=== PATIENT | male | born 1955 | race Caucasian/White ===

== ENCOUNTER 2018-07-25 10:51 | Emergency (ER) | payer OTHER ==
[2018-07-25 11:09] VITALS: BP 138/83; PULSE 76; RESP 18; TEMP 98.1; O2SAT 100
--- NOTE | 2018-07-25 11:21 | C.PDOC ---
History Of Present Illness 62 year old male complaining of dental pain to his left lower and upper molars for 20 days but worse for the past 2 days. Reports he is not able to eat because of the pain. He denies any fever, n/v/d, or any other symptoms. Time Seen by Provider: 07/25/18 11:00 Chief Complaint (Nursing): Dental Pain History Per: Patient History/Exam Limitations: no limitations Onset/Duration Of Symptoms: Days Current Symptoms Are (Timing): Still Present Past Medical History Reviewed: Historical Data, Nursing Documentation, Vital Signs Vital Signs: Last Vital Signs Temp 98.1 F 07/25/18 11:04 Pulse 76 07/25/18 11:04 Resp 18 07/25/18 11:04 BP 138/83 07/25/18 11:04 Pulse Ox 100 07/25/18 11:04 - Medical History PMH: HTN Surgical History: Coronary Stent (X3) Family History: States: No Known Family Hx - Social History Hx Alcohol Use: No Hx Substance Use: No Review Of Systems Except As Marked, All Systems Reviewed And Found Negative. Constitutional: Negative for: Fever ENT: Positive for: Other (dental pain ) Gastrointestinal: Negative for: Nausea, Vomiting, Diarrhea Physical Exam - Physical Exam Appears: Non-toxic Skin: Warm, Dry Head: Normacephalic Eye(s): bilateral: Normal Inspection Ear(s): Bilateral: Normal Nose: Normal Oral Mucosa: Moist Teeth: Other (Filling noted to first, second, and third lower molars. Filling on third molar is cracked ) Gingiva: No Swelling, No Abscess ED Course And Treatment O2 Sat by Pulse Oximetry: 100 (RA) Pulse Ox Interpretation: Normal Medical Decision Making Medical Decision Making: Orders: - Amoxicillin 500mg PO - Motrin 600mg PO On reassessment, patient is feeling better. Patient instructed to follow up with primary medical doctor or clinic in 2-5 days for further evaluation. Take medications as prescribed. Return to the emergency department at any time if symptoms persist or worsen. Disposition - Disposition [facility] Disposition: HOME/ ROUTINE Disposition Time: 11:42 Condition: STABLE Additional Instructions: Follow up with Dentist within 1-2 days without fail. 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 - Scribe Statement The provider has reviewed the documentation as recorded by the Scribe Mary Beth Bell All medical record entries made by the Deborahibjosé were at my direction and personally dictated by me. I have reviewed the chart and agree that the record accurately reflects my personal performance of the history, physical exam, medical decision making, and the department course for this patient. I have also personally directed, reviewed, and agree with the discharge instructions and disposition.
== END 2018-07-25 11:51 | disposition home or self-care (01) ==
LOC: C.ER 10:51
DX: K02.9 Dental caries, unspecified (principal); I10 Essential (primary) hypertension

== ENCOUNTER 2019-01-18 09:35 | Observation (INO) | payer MEDICAID, OTHER ==
[2019-01-18 11:19] LABS: BASO # 0.1 K/uL (0.0-0.2); BASO % 0.9 % (0.0-2.0); EOS # 0.4 K/uL (0.0-0.7); EOS % 5.6 % (0.0-4.0); HEMOGLOBIN 13.9 g/dL (12.0-18.0); LYMPH # 1.7 K/uL (1.0-4.3); LYMPH % 26.4 % (20.0-40.0); MEAN CELL VOLUME 91.4 fL (80.0-94.0); MEAN CORPUSCULAR HEMOGLOBIN 30.4 pg (27.0-31.0); MEAN CORPUSCULAR HGB CONC 33.2 g/dL (33.0-37.0); MEAN PLATELET VOLUME 8.4 fL (7.2-11.7); MONO # 0.6 K/uL (0.0-0.8); MONO % 9.1 % (0.0-10.0); NEUT # 3.7 K/uL (1.8-7.0); RBC 4.57 Mil/uL (4.40-5.90); RED CELL DISTRIBUTION WIDTH 14.7 % (11.5-14.5); WHITE BLOOD COUNT 6.3 K/uL (4.8-10.8)
--- NOTE | 2019-01-18 11:26 | C.PDOC ---
History Of Present Illness L SIDED, L NECK CP 2 DAYS AGO, STILL PERSIST BUT IMPROVED FROM BEFORE. HO CAD W STENTS 2004, 2007. NONEXERTIONAL, RELIEVED W NG X 1. "STILL A LITTLE YESTERDAY". TODAY STILL W MILD L NECK TIGHTNESS. NO SOB, DIZZY. DENIES HO ANGINA, LAST USE NG 2007. NO OTHER ASSOC SX EXAM NAD LUNGS NEG REMAINDER NEG Time Seen by Provider: 01/18/19 10:33 Chief Complaint (Nursing): Medical Clearance History Per: Patient History/Exam Limitations: no limitations Onset/Duration Of Symptoms: Days Current Symptoms Are (Timing): Still Present Severity: Moderate Past Medical History Reviewed: Historical Data, Nursing Documentation, Vital Signs Vital Signs: Last Vital Signs Temp 98.6 F 01/18/19 09:56 Pulse 84 01/18/19 09:56 Resp 18 01/18/19 09:56 BP 113/76 01/18/19 09:56 Pulse Ox 98 01/18/19 09:56 - Medical History PMH: HTN Surgical History: Coronary Stent (X3) Family History: States: No Known Family Hx - Social History Hx Alcohol Use: No Hx Substance Use: No Review Of Systems Except As Marked, All Systems Reviewed And Found Negative. Constitutional: Negative for: Fever, Chills Cardiovascular: Positive for: Chest Pain Respiratory: Negative for: Shortness of Breath Musculoskeletal: Positive for: Neck Pain Neurological: Negative for: Dizziness Physical Exam - Physical Exam Appears: No Acute Distress Skin: Warm, Dry Head: Atraumatic, Normacephalic Eye(s): bilateral: Normal Inspection Neck: Normal ROM, No Midline Cervical Tenderness, Supple Chest: Symmetrical Cardiovascular: Rhythm Regular Respiratory: Normal Breath Sounds, No Rales, No Rhonchi, No Wheezing Gastrointestinal/Abdominal: Soft, No Tenderness, No Guarding, No Rebound Neurological/Psych: Oriented x3, Normal Speech ED Course And Treatment - Laboratory Results Result Diagrams: 01/18/19 11:14 01/18/19 11:14 ECG: Interpreted By Ma ECG Rhythm: Sinus Rhythm ECG Interpretation: Normal Rate From EC O2 Sat by Pulse Oximetry: 98 (RA) Pulse Ox Interpretation: Normal - Radiology CXR: Interpreted by Ma CXR Interpretation: Yes: No Acute Disease Reevaluation Time: 12:01 Reassessment Condition: Unchanged (NO RECUR CP) - Physician Consult Information Time Consulting Physician Contacted: 12:01 Physician Contacted: Frances Iglesias Outcome Of Conversation: WILL ADMIT Medical Decision Making Medical Decision Making: Plan: --Labs --CXR --Aspirin PO Disposition Counseled Patient/Family Regarding: Studies Performed, Diagnosis - Disposition Disposition: HOSPITALIZED Disposition Time: 12:02 Condition: STABLE Forms: [facility] (Armenian) - Clinical Impression Clinical Impression: Chest pain - Scribe Statement The provider has reviewed the documentation as recorded by the Liset Choudhary Provider Attestation: All medical record entries made by the Liset were at my direction and personally dictated by me. I have reviewed the chart and agree that the record accurately reflects my personal performance of the history, physical exam, medical decision making, and the department course for this patient. I have also personally directed, reviewed, and agree with the discharge instructions and disposition.
[2019-01-18 11:29] LABS: ALB/GLOB RATIO 1.8 (1.0-2.1); ALBUMIN 4.2 g/dL (3.5-5.0); AST/SGOT 21 U/L (17-59); BLOOD UREA NITROGEN 14 mg/dL (9-20); CALCIUM 9.1 mg/dl (8.6-10.4); GFR NON-AFRICAN AMERICAN > 60
[2019-01-18 11:31] LABS: ALT/SGPT < 6 U/L (21-72); PROTHROMBIN TIME 11.3 SECONDS (9.7-12.2)
[2019-01-18 11:41] LABS: CK-MB 1.41 ng/mL (0.0-3.38)
--- NOTE | 2019-01-18 12:11 | CP.PCM.HP ---
<Danielle Ram - Last Filed: 01/18/19 15:13> History of Present Illness - History of Present Illness History of Present Illness: Proxy: Rakesh Schultz (son) # [phone] 63 year old male with past medical history CAD;AR (3 stents); HTN; HLD; Diabetes Type II; Parkinson's Disease; BPH and Primary insomnia presents to the ER for chest pain. Patient states on Friday while he was at work typing at the computer he started to have chest pressure. He states the chest pressure radiated to the left side of his neck. At that moment he took Nitroglycerin and Aspirin 81mg and stated the pain subsided after 15 minutes. He stated at that time he did not go to the ER because he stated he had an appointment with his offal separator on Friday. He also states he has noticed swelling in his lower extremities at the end of his work day for the past few weeks. Patient currently denies chest pain, shortness of breath, nausea, vomiting, headache, dizziness, diarrhea, constipation, fever, or chills. PMD: Dr. Hawk Environmental Technology Professor: Dr. Mckeon Past Medical History: CAD;AR (3 stents); HTN; HLD; Diabetes Type II; Parkinson's Disease; BPH; Primary insomnia Past Surgical History: Cardiac stents x3 2004/2007; angiogram 2014 Medications: Carvedilol 12.5mg bid; Atorvastatin 40mg HS; Carbidopa-Levodopa 25- 100mg bid; Metformin 1000mg bid; Lantus 55 units HS; Aspirin 81mg daily; Tamsulosin 0.4mg daily; Mirtazapine 15mg HS Allergies: CHARLY/ARB - cough Social History: works in [employer]; lives with ; denies smoking, alcohol or illicit drug use. Present on Admission - Present on Admission Any Indicators Present on Admission: No Review of Systems - Constitutional Constitutional: absent: Chills, Fever, Headache - EENT Eyes: absent: Blurred Vision - Cardiovascular Cardiovascular: absent: Chest Pain, Dyspnea, Leg Edema, Palpitations - Respiratory Respiratory: absent: Dyspnea, Dyspnea on Exertion - Gastrointestinal Gastrointestinal: absent: Constipation, Diarrhea, Nausea, Vomiting - Genitourinary Genitourinary: absent: Dysuria - Neurological Neurological: absent: Dizziness Past Patient History - Past Social History Smoking Status: Never Smoked - CARDIAC Hx Hypertension: Yes - ENDOCRINE/METABOLIC Hx Endocrine Disorders: Yes Hx Diabetes Mellitus Type 2: Yes - PSYCHIATRIC Hx Substance Use: No - SURGICAL HISTORY Hx Coronary Stent: Yes (X3) - ANESTHESIA Hx Anesthesia: Yes Meds Allergies/Adverse Reactions: Allergies Allergy/AdvReac Type Severity Reaction Status Date / Time CHARLY Inhibitors AdvReac COUGH Verified 01/18/19 15:10 ARB-Angiotensin Receptor AdvReac COUGH Verified 01/18/19 15:11 Antagonist Physical Exam - Constitutional Appears: Well, No Acute Distress - Head Exam Head Exam: ATRAUMATIC, NORMAL INSPECTION, NORMOCEPHALIC - Eye Exam Eye Exam: EOMI, Normal appearance, PERRL Pupil Exam: NORMAL ACCOMODATION - ENT Exam ENT Exam: Mucous Membranes Moist - Respiratory Exam Respiratory Exam: Clear to Auscultation Bilateral, NORMAL BREATHING PATTERN - Cardiovascular Exam Cardiovascular Exam: REGULAR RHYTHM, +S1, +S2. absent: Irregular Rhythm, JVD - GI/Abdominal Exam GI & Abdominal Exam: Normal Bowel Sounds, Soft. absent: Tenderness - Extremities Exam Extremities exam: Positive for: normal inspection. Negative for: pedal edema - Neurological Exam Neurological exam: Alert, Oriented x3 - Psychiatric Exam Psychiatric exam: Normal Affect, Normal Mood - Skin Skin Exam: Normal Color Results - Vital Signs Recent Vital Signs: Last Vital Signs Temp 98.6 F 01/18/19 09:56 Pulse 84 01/18/19 09:56 Resp 18 01/18/19 09:56 BP 113/76 01/18/19 09:56 Pulse Ox 98 01/18/19 12:02 - Labs Result Diagrams: 01/18/19 11:14 01/18/19 11:14 Labs: Laboratory Results - last 24 hr 01/18/19 01/18/19 01/18/19 11:14 11:14 11:14 WBC 6.3 RBC 4.57 Hgb 13.9 Hct 41.8 MCV 91.4 MCH 30.4 MCHC 33.2 RDW 14.7 H Plt Count 233 MPV 8.4 Neut % (Auto) 58.0 Lymph % (Auto) 26.4 [place] % (Auto) 9.1 Eos % (Auto) 5.6 H Baso % (Auto) 0.9 Neut # (Auto) 3.7 Lymph # (Auto) 1.7 [place] # (Auto) 0.6 Eos # (Auto) 0.4 Baso # (Auto) 0.1 PT 11.3 INR 1.0 APTT 41 H Sodium 136 Potassium 4.4 Chloride 103 Carbon Dioxide 26 Anion Gap 13 BUN 14 Creatinine 0.7 L Est GFR ( Amer) > 60 Est GFR (Non-Af Amer) > 60 Random Glucose 169 H D Calcium 9.1 Total Bilirubin 0.6 AST 21 ALT < 6 L D Alkaline Phosphatase 102 Total Creatine Kinase 136 CK-MB (Mass) 1.41 Troponin I < 0.0120 Total Protein 6.6 Albumin 4.2 Globulin 2.4 Albumin/Globulin Ratio 1.8 Assessment & Plan (1) Chest pain Assessment and Plan: - Patient admitted to tele - Cardiology Consult: Dr. Molina --> help appreciated * Exercise Stress Test 01/18/19 * NPO after midnight - EKG: NSR 80bpm - Trop negative; f/u Trop x2 - BNP 56.5; D-dimer <200 - Chest Xray: No focal Consolidation - Nitroglycerin SL prn Status: Acute Priority: High (2) CAD (coronary artery disease) Assessment and Plan: - Continue medications: * Rosuvastatin 20mg po HS * Aspirin 81mg po daily * Coreg 12.5mg po bid - f/u Lipid Panel Status: Chronic Priority: High (3) Hypertension Assessment and Plan: - Continue medication: * Carvedilol 12.4mg po bid - ECHO (07/25/19): LEft ventricle is borderline to mildly dilated. There is moderate hypokinesis in the mid-anteroseptal wall of the left ventricle compatible with coronary heart disease/myocardial infarct. Systolic function is mildly impaired. EF 47%. Status: Acute (4) HLD (hyperlipidemia) Assessment and Plan: - Continue medications: * Rosuvastatin 20mg po HS - f/u Lipid Panel Status: Chronic Priority: Low (5) Diabetes mellitus, type II, insulin dependent Assessment and Plan: - Continue medications * Lantus 30units HS once for 01/18/19 * Lantus 55units HS * Metformin 1000mg bid - hold * Novolon SC ACHS - Accuchecks; Hypoglycemia Protocol - hA1c (10/2017): 8 - f/u hA1c Status: Chronic Priority: Low (6) Parkinsons disease Assessment and Plan: - Continue home medication: Carbidopa/Levodopa 1 tab po bid Status: Chronic Priority: Low (7) BPH (benign prostatic hyperplasia) Assessment and Plan: - Continue home medication Flomax 0.4mg po daily Status: Chronic Priority: Low (8) Primary insomnia Assessment and Plan: - Continue home medication Remeron 15mg po HS Status: Chronic Priority: Low (9) DVT prophylaxis Assessment and Plan: Lovenox 40mg SC daily Case discussed with Dr. Harris Ram PGY-1 Status: Acute Priority: Low <Frances Iglesias V - Last Filed: 01/20/19 21:00> Results - Vital Signs Recent Vital Signs: Last Vital Signs Temp 98 F 01/20/19 07:00 Pulse 72 01/20/19 08:00 Resp 20 01/20/19 07:00 BP 112/74 01/20/19 14:07 Pulse Ox 98 01/20/19 12:50 - Labs Result Diagrams: 01/20/19 06:04 01/20/19 06:04 Labs: Laboratory Results - last 24 hr 01/19/19 01/20/19 01/20/19 21:15 06:04 06:04 WBC 6.0 RBC 4.51 Hgb 13.8 Hct 40.8 MCV 90.6 MCH 30.7 MCHC 33.8 RDW 15.0 H Plt Count 242 MPV 8.3 Neut % (Auto) 56.8 Lymph % (Auto) 27.6 [place] % (Auto) 9.8 Eos % (Auto) 5.0 H Baso % (Auto) 0.8 Neut # (Auto) 3.4 Lymph # (Auto) 1.7 [place] # (Auto) 0.6 Eos # (Auto) 0.3 Baso # (Auto) 0.0 Sodium 136 Potassium 3.8 Chloride 104 Carbon Dioxide 28 Anion Gap 8 L BUN 12 Creatinine 0.7 L Est GFR ( Amer) > 60 Est GFR (Non-Af Amer) > 60 POC Glucose (mg/dL) 273 H Random Glucose 153 H D Calcium 8.8 Phosphorus 3.8 Magnesium 2.0 Total Bilirubin 0.5 AST 17 ALT 16 L Alkaline Phosphatase 80 Total Protein 6.1 L Albumin 3.7 Globulin 2.4 Albumin/Globulin Ratio 1.5 01/20/19 01/20/19 06:12 11:01 WBC RBC Hgb Hct MCV MCH MCHC RDW Plt Count MPV Neut % (Auto) Lymph % (Auto) [place] % (Auto) Eos % (Auto) Baso % (Auto) Neut # (Auto) Lymph # (Auto) [place] # (Auto) Eos # (Auto) Baso # (Auto) Sodium Potassium Chloride Carbon Dioxide Anion Gap BUN Creatinine Est GFR ( Amer) Est GFR (Non-Af Amer) POC Glucose (mg/dL) 157 H 281 H Random Glucose Calcium Phosphorus Magnesium Total Bilirubin AST ALT Alkaline Phosphatase Total Protein Albumin Globulin Albumin/Globulin Ratio Attending/Attestation - Attestation I have personally seen and examined this patient.: Yes I have fully participated in the care of the patient.: Yes I have reviewed all pertinent clinical information: Yes Notes (Text): This is a late computer entry for January 18, 2019. Patient seen, examined, case discussed with electromedical equipment repairer. Patient was evaluated in the hallway in the emergency room awaiting for telemetry bed. Patient with a known history of coronary artery disease 3 prior stent placements, diabetes, hypertension, noting for chest pain initially started on Friday that resolved with nitro tentative to see outpatient offal separator however was not available came to the emergency room. Initial troponin is negative cardiology consult obtained. Resident has spoken with Dr. Molina, offal separator who recommended for an exercise stress test. Will monitor patient on telemetry check millimeters as well as echocardiogram. Admitting orders discussed with resident at time of admission..
--- NOTE | 2019-01-18 12:49 | RAD ---
HISTORY: CP COMPARISON: None available. TECHNIQUE: Chest PA and lateral, 2 views FINDINGS: Examination limited by habitus. LUNGS: No focal consolidation. Please note that chest x-ray has limited sensitivity for the detection of pulmonary masses. PLEURA: No significant pleural effusion identified. No definite pneumothorax . CARDIOVASCULAR: Heart size appears within normal limits. No atherosclerotic calcification present. OSSEOUS STRUCTURES: No acute osseous abnormality identified. VISUALIZED UPPER ABDOMEN: Unremarkable. OTHER FINDINGS: None. IMPRESSION: No focal consolidation.
[2019-01-18 13:30] LABS: B-TYPE NATRIURETIC PEPTIDE 56.5 pg/mL (0-900)
[2019-01-18] MEDS ORDERED: Glucagon Recombinant 1 mg Inj IM PRN (15:12)
[2019-01-18] MEDS ORDERED: Dextrose 50% SYRINGE Inj (50 ml) IV PRN (15:12)
--- NOTE | 2019-01-18 15:21 | CP.PCM.CON ---
History of Present Illness - History of Present Illness History of Present Illness: Consultation for evaluation of chest pain/ unstable angina HPI: 63-year-old male with past medical history significant for CAD status post NV back in 2014 at which time he was in more anxious underwent angioplasty and stenting of proximal LAD with a 2.5 x 20 mm Cordis stent subsequently underwent a repeat catheterization in 2000-05-20 at which time he was told that he is and underwent 2 more stents he is not aware of the location the procedure was done in [facility] he started having recent episode of substernal chest pressure with radiation to the neck and left arm area was seen by Dr. Mckeon in the clinic who recommended to be further evaluated in the emergency room initial EKG shows nonspecific changes in the first set of cardiac enzymes is negative. He does have a history of hypertension diabetes and hyperlipidemia last hemoglobin A1c was 8.0 in september , we dont have the current lipid profile last echocardiogram was done on July 2018. Review of Systems - Review of Systems Systems not reviewed;Unavailable: Acuity of Condition - Constitutional Constitutional: As Per HPI - EENT Eyes: As Per HPI Ears: As Per HPI Nose/Mouth/Throat: As Per HPI - Cardiovascular Cardiovascular: As Per HPI - Respiratory Respiratory: As Per HPI - Gastrointestinal Gastrointestinal: As Per HPI - Genitourinary Genitourinary: As Per HPI - Reproductive: Male Reproductive:Male: As Per HPI - Musculoskeletal Musculoskeletal: As Per HPI - Integumentary Integumentary: As Per HPI - Neurological Neurological: As Per HPI - Psychiatric Psychiatric: As Per HPI - Endocrine Endocrine: As Per HPI Past Patient History - Past Social History Smoking Status: Never Smoked - CARDIAC Hx Hypertension: Yes - ENDOCRINE/METABOLIC Hx Endocrine Disorders: Yes Hx Diabetes Mellitus Type 2: Yes - PSYCHIATRIC Hx Substance Use: No - SURGICAL HISTORY Hx Coronary Stent: Yes (X3) - ANESTHESIA Hx Anesthesia: Yes Meds Allergies/Adverse Reactions: Allergies Allergy/AdvReac Type Severity Reaction Status Date / Time CHARLY Inhibitors AdvReac COUGH Verified 01/18/19 15:10 ARB-Angiotensin Receptor AdvReac COUGH Verified 01/18/19 15:11 Antagonist - Medications Medications: Current Medications Aspirin (Aspirin Chewable) 81 mg PO DAILY ADALI Carbidopa/Levodopa (Sinemet) 1 tab PO BID ADALI Carvedilol (Coreg) 12.5 mg PO BID ADALI Dextrose (Dextrose 50% Inj) 0 ml IV STAT PRN; Protocol PRN Reason: Hypoglycemia Protocol Dextrose (Glutose 15) 0 gm PO ONCE PRN; Protocol PRN Reason: Hypoglycemia Protocol Enoxaparin Sodium (Lovenox) 40 mg SC DAILY ADALI Glucagon (Glucagen Diagnostic Kit) 0 mg IM STAT PRN; Protocol PRN Reason: Hypoglycemia Protocol Dextrose (Dextrose 5% In Water 1000 Ml) 1,000 mls @ 0 mls/hr IV .Q0M PRN; Protocol PRN Reason: Hypoglycemia Protocol Insulin Glargine (Lantus) 55 unit SC HS ADALI Insulin Glargine (Lantus) 30 unit SC HS ONE Stop: 01/18/19 22:01 Insulin Human Regular (Novolin R) 0 unit SC ACHS ADALI; Protocol Mirtazapine (Remeron) 15 mg PO HS ADALI Nitroglycerin (Nitrostat Sl Tab) 0.4 mg SL Q5MIN PRN PRN Reason: Pain, moderate (4-7) Rosuvastatin Calcium (Crestor) 20 mg PO HS ADALI Tamsulosin HCl (Flomax) 0.4 mg PO DAILY ADALI Physical Exam - Constitutional Appears: Well - Head Exam Head Exam: ATRAUMATIC, NORMAL INSPECTION, NORMOCEPHALIC - Eye Exam Eye Exam: EOMI, Normal appearance, PERRL Pupil Exam: NORMAL ACCOMODATION, PERRL - ENT Exam ENT Exam: Mucous Membranes Moist, Normal Exam - Neck Exam Neck exam: Positive for: Normal Inspection - Respiratory Exam Respiratory Exam: Clear to Auscultation Bilateral, NORMAL BREATHING PATTERN - Cardiovascular Exam Cardiovascular Exam: REGULAR RHYTHM, RRR, +S1, +S2, Systolic Murmur - GI/Abdominal Exam GI & Abdominal Exam: Normal Bowel Sounds, Soft. absent: Tenderness - Extremities Exam Extremities exam: Positive for: normal inspection - Back Exam Back exam: NORMAL INSPECTION - Neurological Exam Neurological exam: Alert, CN II-XII Intact, Normal Gait, Oriented x3, Reflexes Normal - Psychiatric Exam Psychiatric exam: Normal Affect, Normal Mood - Skin Skin Exam: Dry, Intact, Normal Color, Warm Results - Vital Signs Recent Vital Signs: Last Vital Signs Temp 98.1 F 01/18/19 12:22 Pulse 81 01/18/19 12:22 Resp 18 01/18/19 12:22 BP 118/78 01/18/19 12:22 Pulse Ox 100 01/18/19 12:22 - Labs Result Diagrams: 01/18/19 11:14 01/18/19 11:14 Labs: Laboratory Results - last 24 hr 01/18/19 01/18/19 01/18/19 11:14 11:14 11:14 WBC 6.3 RBC 4.57 Hgb 13.9 Hct 41.8 MCV 91.4 MCH 30.4 MCHC 33.2 RDW 14.7 H Plt Count 233 MPV 8.4 Neut % (Auto) 58.0 Lymph % (Auto) 26.4 [place] % (Auto) 9.1 Eos % (Auto) 5.6 H Baso % (Auto) 0.9 Neut # (Auto) 3.7 Lymph # (Auto) 1.7 [place] # (Auto) 0.6 Eos # (Auto) 0.4 Baso # (Auto) 0.1 PT 11.3 INR 1.0 APTT 41 H D-Dimer, Quantitative Sodium 136 Potassium 4.4 Chloride 103 Carbon Dioxide 26 Anion Gap 13 BUN 14 Creatinine 0.7 L Est GFR ( Amer) > 60 Est GFR (Non-Af Amer) > 60 Random Glucose 169 H D Calcium 9.1 Total Bilirubin 0.6 AST 21 ALT < 6 L D Alkaline Phosphatase 102 Total Creatine Kinase 136 CK-MB (Mass) 1.41 Troponin I < 0.0120 NT-Pro-B Natriuret Pep 56.5 Total Protein 6.6 Albumin 4.2 Globulin 2.4 Albumin/Globulin Ratio 1.8 01/18/19 13:09 WBC RBC Hgb Hct MCV MCH MCHC RDW Plt Count MPV Neut % (Auto) Lymph % (Auto) [place] % (Auto) Eos % (Auto) Baso % (Auto) Neut # (Auto) Lymph # (Auto) [place] # (Auto) Eos # (Auto) Baso # (Auto) PT INR APTT D-Dimer, Quantitative < 200 Sodium Potassium Chloride Carbon Dioxide Anion Gap BUN Creatinine Est GFR ( Amer) Est GFR (Non-Af Amer) Random Glucose Calcium Total Bilirubin AST ALT Alkaline Phosphatase Total Creatine Kinase CK-MB (Mass) Troponin I NT-Pro-B Natriuret Pep Total Protein Albumin Globulin Albumin/Globulin Ratio Assessment & Plan (1) Chest pain Assessment and Plan: sx typical in nature with hx of cad/stents plan for exercise nuclear stress test tomorrow npo p mn Status: Acute Priority: High (2) Hypertension Assessment and Plan: cont meds Status: Acute (3) CAD (coronary artery disease) Assessment and Plan: cont asa, bb, statins Status: Chronic Priority: High (4) Diabetes mellitus, type II, insulin dependent Status: Chronic Priority: Low (5) HLD (hyperlipidemia) Status: Chronic Priority: Low
[2019-01-18 17:46] LABS: CK-MB 1.18 ng/mL (0.0-3.38)
[2019-01-18] MEDS: (Novolin R) Insulin Human Regular 100 units/ml vial SC SCH ×2 (17:51→21:17)
[2019-01-18] MEDS ORDERED: (Lantus) Insulin Glargine, Recombinant SC SCH (22:00)
[2019-01-18] MEDS ORDERED: (Lantus) Insulin Glargine, Recombinant SC ONE (22:00)
[2019-01-18 23:32] LABS: CK-MB 1.03 ng/mL (0.0-3.38)
[2019-01-19 01:44] VITALS: RESP 20
[2019-01-19 08:00] LABS: BASO # 0.1 K/uL (0.0-0.2); BASO % 1.1 % (0.0-2.0); EOS # 0.3 K/uL (0.0-0.7); EOS % 5.5 % (0.0-4.0); HEMOGLOBIN 13.7 g/dL (12.0-18.0); LYMPH # 1.7 K/uL (1.0-4.3); MEAN CELL VOLUME 90.6 fL (80.0-94.0); MEAN CORPUSCULAR HEMOGLOBIN 30.5 pg (27.0-31.0); MEAN CORPUSCULAR HGB CONC 33.6 g/dL (33.0-37.0); MEAN PLATELET VOLUME 8.6 fL (7.2-11.7); MONO # 0.5 K/uL (0.0-0.8); MONO % 8.9 % (0.0-10.0); NEUT # 3.1 K/uL (1.8-7.0); NEUT % 54.5 % (50.0-75.0); RBC 4.48 Mil/uL (4.40-5.90); RED CELL DISTRIBUTION WIDTH 14.9 % (11.5-14.5); WHITE BLOOD COUNT 5.7 K/uL (4.8-10.8)
[2019-01-19] MEDS: (Novolin R) Insulin Human Regular 100 units/ml vial SC SCH ×4 (08:00→21:18)
[2019-01-19 08:14] LABS: ALB/GLOB RATIO 1.4 (1.0-2.1); ALBUMIN 3.7 g/dL (3.5-5.0); ALT/SGPT 20 U/L (21-72); AST/SGOT 20 U/L (17-59); BLOOD UREA NITROGEN 13 mg/dL (9-20); CALCIUM 9.1 mg/dl (8.6-10.4); GFR NON-AFRICAN AMERICAN > 60; HDL CHOLESTEROL 41 mg/dL (30-70)
[2019-01-19 08:25] LABS: LDL CHOLESTEROL 59 mg/dL (0-129)
[2019-01-19] MEDS: Enoxaparin 40 mg Syringe SC SCH (09:58)
--- NOTE | 2019-01-19 14:12 | CP.PCM.PN ---
Subjective - Date & Time of Evaluation Date of Evaluation: 01/19/19 Time of Evaluation: 14:11 - Subjective Subjective: s/p stress test pending nuclear images Objective - Vital Signs/Intake and Output Vital Signs (last 24 hours): Temp Pulse Resp BP Pulse Ox 98.3 F 76 20 113/73 96 01/19/19 07:05 01/19/19 08:00 01/19/19 07:05 01/19/19 09:58 01/19/19 12:00 - Medications Medications: Current Medications Aspirin (Aspirin Chewable) 81 mg PO DAILY [facility] Last Admin: 01/19/19 09:58 Dose: 81 mg Carbidopa/Levodopa (Sinemet) 1 tab PO BID [facility] Last Admin: 01/19/19 09:57 Dose: 1 tab Carvedilol (Coreg) 12.5 mg PO BID [facility] Last Admin: 01/19/19 09:58 Dose: 12.5 mg Dextrose (Dextrose 50% Inj) 0 ml IV STAT PRN; Protocol PRN Reason: Hypoglycemia Protocol Dextrose (Glutose 15) 0 gm PO ONCE PRN; Protocol PRN Reason: Hypoglycemia Protocol Enoxaparin Sodium (Lovenox) 40 mg SC DAILY [facility] Last Admin: 01/19/19 09:58 Dose: 40 mg Glucagon (Glucagen Diagnostic Kit) 0 mg IM STAT PRN; Protocol PRN Reason: Hypoglycemia Protocol Dextrose (Dextrose 5% In Water 1000 Ml) 1,000 mls @ 0 mls/hr IV .Q0M PRN; Protocol PRN Reason: Hypoglycemia Protocol Insulin Glargine (Lantus) 55 unit SC HS [facility] Insulin Human Regular (Novolin R) 0 unit SC [facility]; Protocol Last Admin: 01/19/19 11:51 Dose: 6 units Mirtazapine (Remeron) 15 mg PO HS [facility] Last Admin: 01/18/19 22:20 Dose: 15 mg Nitroglycerin (Nitrostat Sl Tab) 0.4 mg SL Q5MIN PRN PRN Reason: Pain, moderate (4-7) Rosuvastatin Calcium (Crestor) 20 mg PO HS [facility] Last Admin: 01/18/19 22:41 Dose: 20 mg Tamsulosin HCl (Flomax) 0.4 mg PO DAILY [facility] Last Admin: 01/19/19 09:58 Dose: 0.4 mg - Labs Labs: 01/19/19 07:51 01/19/19 07:51 PT 11.3 SECONDS (9.7-12.2) 01/18/19 11:14 INR 1.0 01/18/19 11:14 APTT 41 SECONDS (21-34) H 01/18/19 11:14 - Constitutional Appears: Well - Head Exam Head Exam: ATRAUMATIC, NORMAL INSPECTION, NORMOCEPHALIC - Eye Exam Eye Exam: EOMI, Normal appearance, PERRL Pupil Exam: NORMAL ACCOMODATION, PERRL - ENT Exam ENT Exam: Mucous Membranes Moist, Normal Exam - Neck Exam Neck Exam: Full ROM, Normal Inspection. absent: Lymphadenopathy - Respiratory Exam Respiratory Exam: Clear to Ausculation Bilateral, NORMAL BREATHING PATTERN - Cardiovascular Exam Cardiovascular Exam: REGULAR RHYTHM, +S1, +S2. absent: Murmur - GI/Abdominal Exam GI & Abdominal Exam: Soft, Normal Bowel Sounds. absent: Tenderness - Extremities Exam Extremities Exam: Full ROM, Normal Capillary Refill, Normal Inspection. absent: Joint Swelling, Pedal Edema - Back Exam Back Exam: NORMAL INSPECTION - Neurological Exam Neurological Exam: Alert, Awake, CN II-XII Intact, Normal Gait, Oriented x3 - Psychiatric Exam Psychiatric exam: Normal Affect, Normal Mood - Skin Skin Exam: Dry, Intact, Normal Color, Warm Assessment and Plan (1) Chest pain Status: Resolved (2) Hypertension Status: Chronic (3) CAD (coronary artery disease) Status: Chronic (4) Diabetes mellitus, type II, insulin dependent Status: Chronic (5) HLD (hyperlipidemia) Status: Chronic
--- NOTE | 2019-01-19 17:20 | CP.PCM.PN ---
<Neo Higuera - Last Filed: 01/19/19 19:05> Subjective - Date & Time of Evaluation Date of Evaluation: 01/19/19 Time of Evaluation: 17:18 - Subjective Subjective: HOSPITALIST SERVICE Pt s/e at bedside, reports complete resolution of chest pain. Reports no active pressure in chest at this time, tolerated stress test well. Pt is sitting comfortably. denies CP SOB FC NV at this time, pending cardio recs- agrees w/ plan Objective - Vital Signs/Intake and Output Vital Signs (last 24 hours): Temp Pulse Resp BP Pulse Ox 98.3 F 85 20 113/73 96 01/19/19 07:05 01/19/19 15:13 01/19/19 07:05 01/19/19 09:58 01/19/19 12:00 - Medications Medications: Current Medications Aspirin (Aspirin Chewable) 81 mg PO DAILY [facility] Last Admin: 01/19/19 09:58 Dose: 81 mg Carbidopa/Levodopa (Sinemet) 1 tab PO BID [facility] Last Admin: 01/19/19 09:57 Dose: 1 tab Carvedilol (Coreg) 12.5 mg PO BID [facility] Last Admin: 01/19/19 09:58 Dose: 12.5 mg Dextrose (Dextrose 50% Inj) 0 ml IV STAT PRN; Protocol PRN Reason: Hypoglycemia Protocol Dextrose (Glutose 15) 0 gm PO ONCE PRN; Protocol PRN Reason: Hypoglycemia Protocol Enoxaparin Sodium (Lovenox) 40 mg SC DAILY [facility] Last Admin: 01/19/19 09:58 Dose: 40 mg Glucagon (Glucagen Diagnostic Kit) 0 mg IM STAT PRN; Protocol PRN Reason: Hypoglycemia Protocol Dextrose (Dextrose 5% In Water 1000 Ml) 1,000 mls @ 0 mls/hr IV .Q0M PRN; Protocol PRN Reason: Hypoglycemia Protocol Insulin Glargine (Lantus) 55 unit SC [facility] Insulin Human Regular (Novolin R) 0 unit SC [facility]; Protocol Last Admin: 01/19/19 11:51 Dose: 6 units Mirtazapine (Remeron) 15 mg PO HS [facility] Last Admin: 01/18/19 22:20 Dose: 15 mg Nitroglycerin (Nitrostat Sl Tab) 0.4 mg SL Q5MIN PRN PRN Reason: Pain, moderate (4-7) Rosuvastatin Calcium (Crestor) 20 mg PO HS [facility] Last Admin: 01/18/19 22:41 Dose: 20 mg Tamsulosin HCl (Flomax) 0.4 mg PO DAILY [facility] Last Admin: 01/19/19 09:58 Dose: 0.4 mg - Labs Labs: 01/19/19 07:51 01/19/19 07:51 PT 11.3 SECONDS (9.7-12.2) 01/18/19 11:14 INR 1.0 01/18/19 11:14 APTT 41 SECONDS (21-34) H 01/18/19 11:14 - Additional Findings Additional findings: - Constitutional Appears: Well, No Acute Distress - Head Exam Head Exam: ATRAUMATIC, NORMAL INSPECTION, NORMOCEPHALIC - Eye Exam Eye Exam: EOMI, Normal appearance, PERRL Pupil Exam: NORMAL ACCOMODATION - ENT Exam ENT Exam: Mucous Membranes Moist - Respiratory Exam Respiratory Exam: Clear to Auscultation Bilateral, NORMAL BREATHING PATTERN - Cardiovascular Exam Cardiovascular Exam: REGULAR RHYTHM, +S1, +S2. absent: Irregular Rhythm, JVD - GI/Abdominal Exam GI & Abdominal Exam: Normal Bowel Sounds, Soft. absent: Tenderness - Extremities Exam Extremities exam: Positive for: normal inspection. Negative for: pedal edema - Neurological Exam Neurological exam: Alert, Oriented x3 - Psychiatric Exam Psychiatric exam: Normal Affect, Normal Mood - Skin Skin Exam: Normal Color Assessment and Plan - Assessment and Plan (Free Text) Assessment: Chest Pain - Patient admitted to tele - Cardiology Consult: Dr. Molina --> help appreciated * Exercise Stress Test today * f/u results - EKG: NSR 80bpm - Trop negative; f/u Trop x2 - BNP 56.5; D-dimer <200 - Chest Xray: No focal Consolidation - Nitroglycerin SL prn CAD - Continue medications: * Rosuvastatin 20mg po HS * Aspirin 81mg po daily * Coreg 12.5mg po bid - Lipid Panel wnl HTN - Continue medication: * Carvedilol 12.4mg po bid - ECHO (07/25/19): LEft ventricle is borderline to mildly dilated. There is moderate hypokinesis in the mid-anteroseptal wall of the left ventricle compatible with coronary heart disease/myocardial infarct. Systolic function is mildly impaired. EF 47%. HLD - Continue medications: * Rosuvastatin 20mg po HS - f/u Lipid Panel DM2 insulin dependent - Continue medications * Lantus 30units HS once for 01/18/19 * Lantus 55units HS * Metformin 1000mg bid - hold * Novolon SC ACHS - Accuchecks; Hypoglycemia Protocol - 9.8 hA1c Parkinsons - Continue home medication: Carbidopa/Levodopa 1 tab po bid BPH - Continue home medication Flomax 0.4mg po daily Insomnia - Continue home medication Remeron 15mg po HS PPx Lovenox 40mg SC daily Dispo: f/u Dr Molina recs CK pgy1 <Frances Iglesias V - Last Filed: 01/20/19 21:02> Objective - Vital Signs/Intake and Output Vital Signs (last 24 hours): Temp Pulse Resp BP Pulse Ox 98 F 72 20 112/74 98 01/20/19 07:00 01/20/19 08:00 01/20/19 07:00 01/20/19 14:07 01/20/19 12:50 - Labs Labs: 01/20/19 06:04 01/20/19 06:04 PT 11.3 SECONDS (9.7-12.2) 01/18/19 11:14 INR 1.0 01/18/19 11:14 APTT 41 SECONDS (21-34) H 01/18/19 11:14 Attending/Attestation - Attestation I have personally seen and examined this patient.: Yes I have fully participated in the care of the patient.: Yes I have reviewed all pertinent clinical information, including history, physical exam and plan: Yes (Patient thank) Notes (Text): This is a late computer entry for January 19, 2019. Patient seen, examined, case discussed with medical translator. Patient underwent a stress test this morning with cardiology. Patient seen post stress test patient reports he is feeling okay he is anxious in regards to results of stress test we will follow-up with cardiology in terms of stress test results to see if any further intervention is needed. Cardiac enzymes are negative. We will continue aspirin, beta-deidre, statin and noted allergy to CHARLY/arm. Continue to monitor on telemetry.
[2019-01-19] MEDS ORDERED: (Lantus) Insulin Glargine, Recombinant SC SCH (22:00)
[2019-01-20 06:31] LABS: ALB/GLOB RATIO 1.5 (1.0-2.1); ALBUMIN 3.7 g/dL (3.5-5.0); ALT/SGPT 16 U/L (21-72); AST/SGOT 17 U/L (17-59); BLOOD UREA NITROGEN 12 mg/dL (9-20); CALCIUM 8.8 mg/dl (8.6-10.4); GFR NON-AFRICAN AMERICAN > 60
[2019-01-20 07:10] LABS: BASO % 0.8 % (0.0-2.0); EOS # 0.3 K/uL (0.0-0.7); HEMOGLOBIN 13.8 g/dL (12.0-18.0); LYMPH # 1.7 K/uL (1.0-4.3); LYMPH % 27.6 % (20.0-40.0); MEAN CELL VOLUME 90.6 fL (80.0-94.0); MEAN CORPUSCULAR HEMOGLOBIN 30.7 pg (27.0-31.0); MEAN CORPUSCULAR HGB CONC 33.8 g/dL (33.0-37.0); MEAN PLATELET VOLUME 8.3 fL (7.2-11.7); MONO # 0.6 K/uL (0.0-0.8); MONO % 9.8 % (0.0-10.0); NEUT # 3.4 K/uL (1.8-7.0); NEUT % 56.8 % (50.0-75.0); RBC 4.51 Mil/uL (4.40-5.90)
[2019-01-20 08:10] VITALS: TEMP 98; O2SAT 98
[2019-01-20] MEDS: (Novolin R) Insulin Human Regular 100 units/ml vial SC SCH ×2 (08:28→13:04)
[2019-01-20] MEDS: Enoxaparin 40 mg Syringe SC SCH (09:22)
[2019-01-20 12:08] VITALS: PULSE 72
--- NOTE | 2019-01-20 12:36 | CARD ---
APPROVED REPORT Date of service: 01/19/2019 Protocol: DAVID Test Type: NUCLEAR STRESS Test Indications: CP Medical History: CP Target HR: 159 bpm Resting ECG: normal Resting Heart Rate: 82 bpm Resting Blood Pressure: 132/80mmHg submaximum (85%): 135 bpm TEST SUMMARY [id number]:01..1.081/.0. PRETESTWARM-UP03:[id number]/80.0. EXERCISESTAGE 103:[id number]/80.0. EXERCISESTAGE 203:[id number]/80.0. EXERCISESTAGE 300:[id number]/80.0. [id number]:[id number]/80.0. POST EXERCISE Reason for Termination: Fatigue Target HR: No Max HR: 141 bpm 88% of Maximum Predicted HR: 159 bpm Exercise duration: 06:52 min:sec, 3 Stage Exercise capacity: 9.6METs Max Blood Pressure: 160/80mmHg Blood Pressure response to exercise: normal resting BP - appropriate response Heart Rate response to exercise: appropriate Chest Pain: No, none Angina index: 0 Arrhythmia: No, none ST Change: No, none Deviation: 0 mm EXAM: Myocardial Perfusion REST/STRESS Imaging Protocol The imaging protocol used to acquire images was Rest Tc-99m/stress Tc-99m 1 day Rest Spect myocardial perfusion imaging was performed in supine position 45 minutes following the injection of 12.5 mCi of Tc-99 Myoview. Gated Stress Spect was performed 46 minutes after intravenous 32.5 mCi Tc-99 Myoview injection. The images were gated to evaluate regional wall motion and calculate ventricular ejection fraction.Images were reconstructed using backfilter projection method in short horizontal and verticle long axis. Spect slices were generated. RESTING DATA EDV75.63ydZY0.40L/min ESV22.00mlMyocardial Cjht920.00g Av. Heart Rate83.00bpm EF71.00% STRESS DATA EDV62.24elOY5.20L/min ESV26.00mlMyocardial Qazk236.00g EF58.00% Regional WT score at stress:2.00 Regional WM score at stress:1.00 Summed WT score at stress:8.00 Av. Heart Rate89.00bpmSummed WM score at stress:20.00 Study quality was fair. Left Ventricular size was Normal at Rest and Stress. LV Perfusion 1 Perfusion Defect Location: basal anterioseptal,mid anteroseptal Perfusion Defect Size: Medium (3-4 segments) Perfusion Defect Severity: Moderate Type of Perfusion Defect: Fixed TCD/TID: No LV Perf. Quant 17 Seg. SSS10.00 17 Seg. SRS13.00 17 Seg. SDS0.00 Stress Defect Extent (% LAD)41.30Rest Defect Extent (% LAD)50.60Rev. Defect Extent (% LAD)0.00 Stress Defect Extent (% LCX)12.50Rest Defect Extent (% LCX)13.80Rev. Defect Extent (% LCX)1.30 Stress Defect Extent (% RCA)0.00Rest Defect Extent (% RCA)0.00Rev. Defect Extent (% RCA)0.00 Stress Defect Extent (% MARCO A)22.20Rest Defect Extent (% MARCO A)26.50Rev. Defect Extent (% MARCO A)0.40 Other Information Quality:Fair Overall Exercise Capacity: Average Conclusion 1. - Moderate sized fixed anteroseptal defect consistent with prior LAD territory infarct 2. - Normal LVEF 3. - No evidence of reversible ischemia
--- NOTE | 2019-01-20 13:37 | CP.PCM.DIS ---
<Neo Higuera - Last Filed: 01/20/19 17:29> Provider - Provider Date of Admission: 01/18/19 12:04 Attending physician: Frances Iglesias DO Consults: 01/18/19 13:20 Cardiology Consult Routine Comment: Consulting Provider: Darnell Molina Consulting Physician: Darnell Molina Reason for Consult: chest pain; hx CAD; 3 stents 2004; 2010 Time Spent in preparation of Discharge (in minutes): 45 Diagnosis - Discharge Diagnosis (1) Chest pain Status: Resolved Priority: High (2) DVT prophylaxis Status: Acute Priority: Low (3) Hypertension Status: Chronic (4) BPH (benign prostatic hyperplasia) Status: Chronic Priority: Low (5) CAD (coronary artery disease) Status: Chronic Priority: High (6) Diabetes mellitus, type II, insulin dependent Status: Chronic Priority: Low (7) HLD (hyperlipidemia) Status: Chronic Priority: Low (8) Parkinsons disease Status: Chronic Priority: Low (9) Primary insomnia Status: Chronic Priority: Low Hospital Course - Lab Results Lab Results: Most Recent Lab Values WBC 6.0 K/uL (4.8-10.8) 01/20/19 06:04 RBC 4.51 Mil/uL (4.40-5.90) 01/20/19 06:04 Hgb 13.8 g/dL (12.0-18.0) 01/20/19 06:04 Hct 40.8 % (35.0-51.0) 01/20/19 06:04 MCV 90.6 fL (80.0-94.0) 01/20/19 06:04 MCH 30.7 pg (27.0-31.0) 01/20/19 06:04 MCHC 33.8 g/dL (33.0-37.0) 01/20/19 06:04 RDW 15.0 % (11.5-14.5) H 01/20/19 06:04 Plt Count 242 K/uL (130-400) 01/20/19 06:04 MPV 8.3 fL (7.2-11.7) 01/20/19 06:04 Neut % (Auto) 56.8 % (50.0-75.0) 01/20/19 06:04 Lymph % (Auto) 27.6 % (20.0-40.0) 01/20/19 06:04 Rich % (Auto) 9.8 % (0.0-10.0) 01/20/19 06:04 Eos % (Auto) 5.0 % (0.0-4.0) H 01/20/19 06:04 Baso % (Auto) 0.8 % (0.0-2.0) 01/20/19 06:04 Neut # (Auto) 3.4 K/uL (1.8-7.0) 01/20/19 06:04 Lymph # (Auto) 1.7 K/uL (1.0-4.3) 01/20/19 06:04 Rich # (Auto) 0.6 K/uL (0.0-0.8) 01/20/19 06:04 Eos # (Auto) 0.3 K/uL (0.0-0.7) 01/20/19 06:04 Baso # (Auto) 0.0 K/uL (0.0-0.2) 01/20/19 06:04 PT 11.3 SECONDS (9.7-12.2) 01/18/19 11:14 INR 1.0 01/18/19 11:14 APTT 41 SECONDS (21-34) H 01/18/19 11:14 D-Dimer, Quantitative < 200 ng/mlDDU (0-243) 01/18/19 13:09 Sodium 136 mmol/L (132-148) 01/20/19 06:04 Potassium 3.8 mmol/L (3.6-5.2) 01/20/19 06:04 Chloride 104 mmol/L (98-107) 01/20/19 06:04 Carbon Dioxide 28 mmol/L (22-30) 01/20/19 06:04 Anion Gap 8 (10-20) L 01/20/19 06:04 BUN 12 mg/dL (9-20) 01/20/19 06:04 Creatinine 0.7 mg/dL (0.8-1.5) L 01/20/19 06:04 Est GFR ( Amer) > 60 01/20/19 06:04 Est GFR (Non-Af Amer) > 60 01/20/19 06:04 POC Glucose (mg/dL) 281 mg/dL (65-110) H 01/20/19 11:01 Random Glucose 153 mg/dL (75-110) H D 01/20/19 06:04 Hemoglobin A1c 9.8 % (4.2-6.5) H D 01/19/19 07:51 Calcium 8.8 mg/dl (8.6-10.4) 01/20/19 06:04 Phosphorus 3.8 mg/dL (2.5-4.5) 01/20/19 06:04 Magnesium 2.0 mg/dL (1.6-2.3) 01/20/19 06:04 Total Bilirubin 0.5 mg/dL (0.2-1.3) 01/20/19 06:04 AST 17 U/L (17-59) 01/20/19 06:04 ALT 16 U/L (21-72) L 01/20/19 06:04 Alkaline Phosphatase 80 U/L (38-126) 01/20/19 06:04 Total Creatine Kinase 107 U/L (55-170) 01/18/19 22:36 CK-MB (Mass) 1.03 ng/mL (0.0-3.38) 01/18/19 22:36 Troponin I < 0.0120 ng/mL (0.00-0.120) 01/18/19 22:36 NT-Pro-B Natriuret Pep 56.5 pg/mL (0-900) 01/18/19 11:14 Total Protein 6.1 g/dL (6.3-8.3) L 01/20/19 06:04 Albumin 3.7 g/dL (3.5-5.0) 01/20/19 06:04 Globulin 2.4 gm/dL (2.2-3.9) 01/20/19 06:04 Albumin/Globulin Ratio 1.5 (1.0-2.1) 01/20/19 06:04 Triglycerides 60 mg/dL (0-149) 01/19/19 07:51 Cholesterol 103 mg/dL (0-199) 01/19/19 07:51 LDL Cholesterol Direct 59 mg/dL (0-129) 01/19/19 07:51 HDL Cholesterol 41 mg/dL (30-70) 01/19/19 07:51 - Hospital Course Hospital Course: Proxy: Rakesh Schultz (son) # [phone] 63 year old male with past medical history CAD;VT (3 stents); HTN; HLD; Diabetes Type II; Parkinson's Disease; BPH and Primary insomnia presents to the ER for chest pain. Patient states on Friday while he was at work typing at the computer he started to have chest pressure. He states the chest pressure radiated to the left side of his neck. At that moment he took Nitroglycerin and Aspirin 81mg and stated the pain subsided after 15 minutes. He stated at that time he did not go to the ER because he stated he had an appointment with his qualitative executive researcher on Friday. He also states he has noticed swelling in his lower extremities at the end of his work day for the past few weeks. Patient currently denies chest pain, shortness of breath, nausea, vomiting, headache, dizziness, diarrhea, constipation, fever, or chills. PMD: Dr. Hawk Director Of Cardiac Rehabilitation: Dr. Mckeon Past Medical History: CAD;VT (3 stents); HTN; HLD; Diabetes Type II; Parkinson's Disease; BPH; Primary insomnia Past Surgical History: Cardiac stents x3 2004/2007; angiogram 2014 Medications: Carvedilol 12.5mg bid; Atorvastatin 40mg HS; Carbidopa-Levodopa 25- 100mg bid; Metformin 1000mg bid; Lantus 55 units HS; Aspirin 81mg daily; Tamsulosin 0.4mg daily; Mirtazapine 15mg HS Allergies: CHARLY/ARB - cough Social History: works in [employer]; lives with ; denies smoking, alcohol or illicit drug use. Pt was admitted for chest pain r/o ACS, Pt underwent stress test w/ Dr Molina, showed no new ischemia, just chronic LAD associated dysfunction, Pt was /dc home with recommendation of stopping sublinguil nitrates, start imdur and ranexa. f/u w/ Dr Hawk and Dr Mckeon within 7 days Chest Pain - Patient admitted to tele - Cardiology Consult: Dr. Molina --> help appreciated * Exercise Stress Test - EKG: NSR 80bpm - Trop negative; f/u Trop x2 - BNP 56.5; D-dimer <200 - Chest Xray: No focal Consolidation - Nitroglycerin SL prn CAD - Continue medications: * Rosuvastatin 20mg po HS * Aspirin 81mg po daily * Coreg 12.5mg po bid - Lipid Panel wnl HTN - Continue medication: * Carvedilol 12.4mg po bid - ECHO (07/25/19): LEft ventricle is borderline to mildly dilated. There is moderate hypokinesis in the mid-anteroseptal wall of the left ventricle compatible with coronary heart disease/myocardial infarct. Systolic function is mildly impaired. EF 47%. HLD - Continue medications: * Rosuvastatin 20mg po HS - f/u Lipid Panel DM2 insulin dependent - Continue medications * Lantus 30units HS once for 01/18/19 * Lantus 55units HS * Metformin 1000mg bid - hold * Novolon SC ACHS - Accuchecks; Hypoglycemia Protocol - 9.8 hA1c Parkinsons - Continue home medication: Carbidopa/Levodopa 1 tab po bid BPH - Continue home medication Flomax 0.4mg po daily Insomnia - Continue home medication Remeron 15mg po HS PPx Lovenox 40mg SC daily Discharge Exam - Head Exam Head Exam: ATRAUMATIC, NORMAL INSPECTION, NORMOCEPHALIC - Additional Findings Additional findings: - Constitutional Appears: Well, No Acute Distress - Head Exam Head Exam: ATRAUMATIC, NORMAL INSPECTION, NORMOCEPHALIC - Eye Exam Eye Exam: EOMI, Normal appearance, PERRL Pupil Exam: NORMAL ACCOMODATION - ENT Exam ENT Exam: Mucous Membranes Moist - Respiratory Exam Respiratory Exam: Clear to Auscultation Bilateral, NORMAL BREATHING PATTERN - Cardiovascular Exam Cardiovascular Exam: REGULAR RHYTHM, +S1, +S2. absent: Irregular Rhythm, JVD - GI/Abdominal Exam GI & Abdominal Exam: Normal Bowel Sounds, Soft. absent: Tenderness - Extremities Exam Extremities exam: Positive for: normal inspection. Negative for: pedal edema - Neurological Exam Neurological exam: Alert, Oriented x3 - Psychiatric Exam Psychiatric exam: Normal Affect, Normal Mood - Skin Skin Exam: Normal Color Discharge Plan - Discharge Medications Prescriptions: Aspirin [Aspirin Chewable] 81 mg PO DAILY #30 chew Atorvastatin Calcium 40 mg PO HS #30 tablet Carvedilol [Coreg] 12.5 mg PO DAILY #30 tab Isosorbide Mononitrate ER [Imdur ER] 30 mg PO DAILY #30 tab Metformin HCl [Glucophage] 1,000 mg PO BID #60 tablet Ranolazine [Ranexa] 500 mg PO BID #60 ter Tamsulosin [Flomax] 2 cap PO HS #60 cap - Follow Up Plan Condition: STABLE Disposition: HOME/ ROUTINE Instructions: Diabetes Exchange Diet, Low Cholesterol, Saturated Fat, and Trans Fat Diet , Diabetes Diet , Chest Pain (DC), Low Salt Diet, Coronary Heart Disease (DC), Drugs to Help Lower Your Cholesterol, Hypertension (DC), Hypertension (GEN) Additional Instructions: Pt is to be d/c home on the following medications\ Aspirin [Aspirin Chewable] 81 mg PO DAILY #30 chew Atorvastatin Calcium 40 mg PO HS #30 tablet Carvedilol [Coreg] 12.5 mg PO DAILY #30 tab Metformin HCl [Glucophage] 1,000 mg PO BID #60 tablet Ranolazine [Ranexa] 500 mg PO BID #60 ter Imdur 30mg Daily PO #30 tabs Tamsulosin [Flomax] 2 cap PO HS #60 cap He is medically stable for d/c Please remember to take the 2 new medications we have started you on: Imdur and Ranexa Please stop taking your sublingual nitrate Please follow up with Dr Mckeon in [facility] within 7 days Please follow up with Dr Hawk your PMD at [facility] within 7 days Referrals: Darnell Molina MD [Staff Provider] - Ryan Mckeon MD [Staff Provider] - Nivia Hawk MD [Staff Provider] - <Frances Iglesias V - Last Filed: 01/20/19 21:08> Provider - Provider Date of Admission: 01/18/19 12:04 Attending physician: Frances Iglesias DO Consults: 01/18/19 13:20 Cardiology Consult Routine Comment: Consulting Provider: Darnell Molina Consulting Physician: Darnell Molina Reason for Consult: chest pain; hx CAD; 3 stents 2004; 2010 Hospital Course - Lab Results Lab Results: Most Recent Lab Values WBC 6.0 K/uL (4.8-10.8) 01/20/19 06:04 RBC 4.51 Mil/uL (4.40-5.90) 01/20/19 06:04 Hgb 13.8 g/dL (12.0-18.0) 01/20/19 06:04 Hct 40.8 % (35.0-51.0) 01/20/19 06:04 MCV 90.6 fL (80.0-94.0) 01/20/19 06:04 MCH 30.7 pg (27.0-31.0) 01/20/19 06:04 MCHC 33.8 g/dL (33.0-37.0) 01/20/19 06:04 RDW 15.0 % (11.5-14.5) H 01/20/19 06:04 Plt Count 242 K/uL (130-400) 01/20/19 06:04 MPV 8.3 fL (7.2-11.7) 01/20/19 06:04 Neut % (Auto) 56.8 % (50.0-75.0) 01/20/19 06:04 Lymph % (Auto) 27.6 % (20.0-40.0) 01/20/19 06:04 Rich % (Auto) 9.8 % (0.0-10.0) 01/20/19 06:04 Eos % (Auto) 5.0 % (0.0-4.0) H 01/20/19 06:04 Baso % (Auto) 0.8 % (0.0-2.0) 01/20/19 06:04 Neut # (Auto) 3.4 K/uL (1.8-7.0) 01/20/19 06:04 Lymph # (Auto) 1.7 K/uL (1.0-4.3) 01/20/19 06:04 Rich # (Auto) 0.6 K/uL (0.0-0.8) 01/20/19 06:04 Eos # (Auto) 0.3 K/uL (0.0-0.7) 01/20/19 06:04 Baso # (Auto) 0.0 K/uL (0.0-0.2) 01/20/19 06:04 PT 11.3 SECONDS (9.7-12.2) 01/18/19 11:14 INR 1.0 01/18/19 11:14 APTT 41 SECONDS (21-34) H 01/18/19 11:14 D-Dimer, Quantitative < 200 ng/mlDDU (0-243) 01/18/19 13:09 Sodium 136 mmol/L (132-148) 01/20/19 06:04 Potassium 3.8 mmol/L (3.6-5.2) 01/20/19 06:04 Chloride 104 mmol/L (98-107) 01/20/19 06:04 Carbon Dioxide 28 mmol/L (22-30) 01/20/19 06:04 Anion Gap 8 (10-20) L 01/20/19 06:04 BUN 12 mg/dL (9-20) 01/20/19 06:04 Creatinine 0.7 mg/dL (0.8-1.5) L 01/20/19 06:04 Est GFR ( Amer) > 60 01/20/19 06:04 Est GFR (Non-Af Amer) > 60 01/20/19 06:04 POC Glucose (mg/dL) 281 mg/dL (65-110) H 01/20/19 11:01 Random Glucose 153 mg/dL (75-110) H D 01/20/19 06:04 Hemoglobin A1c 9.8 % (4.2-6.5) H D 01/19/19 07:51 Calcium 8.8 mg/dl (8.6-10.4) 01/20/19 06:04 Phosphorus 3.8 mg/dL (2.5-4.5) 01/20/19 06:04 Magnesium 2.0 mg/dL (1.6-2.3) 01/20/19 06:04 Total Bilirubin 0.5 mg/dL (0.2-1.3) 01/20/19 06:04 AST 17 U/L (17-59) 01/20/19 06:04 ALT 16 U/L (21-72) L 01/20/19 06:04 Alkaline Phosphatase 80 U/L (38-126) 01/20/19 06:04 Total Creatine Kinase 107 U/L (55-170) 01/18/19 22:36 CK-MB (Mass) 1.03 ng/mL (0.0-3.38) 01/18/19 22:36 Troponin I < 0.0120 ng/mL (0.00-0.120) 01/18/19 22:36 NT-Pro-B Natriuret Pep 56.5 pg/mL (0-900) 01/18/19 11:14 Total Protein 6.1 g/dL (6.3-8.3) L 01/20/19 06:04 Albumin 3.7 g/dL (3.5-5.0) 01/20/19 06:04 Globulin 2.4 gm/dL (2.2-3.9) 01/20/19 06:04 Albumin/Globulin Ratio 1.5 (1.0-2.1) 01/20/19 06:04 Triglycerides 60 mg/dL (0-149) 01/19/19 07:51 Cholesterol 103 mg/dL (0-199) 01/19/19 07:51 LDL Cholesterol Direct 59 mg/dL (0-129) 01/19/19 07:51 HDL Cholesterol 41 mg/dL (30-70) 01/19/19 07:51 Attending/Attestation - Attestation I have personally seen and examined this patient.: Yes I have fully participated in the care of the patient.: Yes I have reviewed all pertinent clinical information, including history, physical exam and plan: Yes Notes (Text): Patient seen, examined, case discussed with medical staff credentialing coordinator. Patient seen this morning. Patient denies acute complaints. Patient awaiting stress test results. Please discussed with qualitative executive researcher noted for old scar over the LAD no intervention needed at this time. Recommendations including Imdur 30 mg once once a day and Ranexa 500 mg p.o. twice a day in addition to patient's aspirin, beta-deidre, and statin. Patient is medically stable for discharge at this time. Patient recommended to follow-up with the [facility] and cardiology. If any change in symptoms or chest pain shortness of breath and fatigue to come back immediately to the emergency room for evaluation. This is a brief summary of patient's hospitalization please refer to EMR for full detail record thank you. Discharge diagnoses 1. Chest Pain resolved - Patient admitted to tele - Cardiology Consult: Dr. Molina --> help appreciated * Official results of stress test noted in EMR. * Discussed with cardiology stable from their standpoint for discharge. - EKG: NSR 80bpm - Cardiac enzymes x3 negative - BNP 56.5; D-dimer <200 - Chest Xray: No focal Consolidation - On discharge patient to continue aspirin, Coreg 12.5 mg p.o. twice a day, Lipitor, and discharged with 2 medications Ranexa 500 p.o. twice daily and Imdur 30 mg once a day 2. History of CAD with stents chronic - Continue medications: * Rosuvastatin 20mg po HS * Aspirin 81mg po daily * Coreg 12.5mg po bid * Added medications noted above. 3. HTN controlled - Continue medication: * Carvedilol 12.5mg po bid - ECHO (07/25/19): LEft ventricle is borderline to mildly dilated. There is moderate hypokinesis in the mid-anteroseptal wall of the left ventricle compatible with coronary heart disease/myocardial infarct. Systolic function is mildly impaired. EF 47%. 4. HLD chronic - Continue medications: * Rosuvastatin 20mg po HS * Patient to resume all home dose of Lipitor on discharge 5. DM2 insulin dependent chronic * Patient to resume home regimen of Lantus and metformin upon discharge * Patient will need follow-up with the clinic in terms of outlines optimizing diabetes. A1c is uncontrolled at 9.8 6. History of Parkinsons chronic - Continue home medication: Carbidopa/Levodopa 1 tab po bid 7. BPH chronic - Continue home medication Flomax 0.4mg po daily 8. Insomnia chronic - Continue home medication Remeron 15mg po HS
[2019-01-20 14:08] VITALS: BP 112/74
[2019-01-20] MEDS ORDERED: Ranolazine 500 mg Extended Release Tablets PO SCH (18:00)
== END 2019-01-20 15:26 | disposition home or self-care (01) ==
LOC: C.ER 09:35 → C.9E 12:04 → C.6T 12:13
PROVIDERS: ADMIT Hospitalist; ATTEND Hospitalist
DX: I25.110 Atherosclerotic heart disease of native coronary artery with unstable angina pectoris (principal); I25.2 Old myocardial infarction; N40.0 Benign prostatic hyperplasia without lower urinary tract symptoms; Z79.4 Long term (current) use of insulin; Z79.899 Other long term (current) drug therapy; Z95.5 Presence of coronary angioplasty implant and graft; E11.9 Type 2 diabetes mellitus without complications; E78.5 Hyperlipidemia, unspecified; G20 Parkinson's disease; I10 Essential (primary) hypertension; F51.01 Primary insomnia
CPT/HCPCS: 36415; 71046; 78452; 80053; 80061; 82948; 83036; 83735; 83880; 84100; 84484; 85025; 85378; 85610; 85730; 93005; 93017; 97116; 97161; 99284; A9502; G0378; G8978; G8979; G8980; J1650